=== PATIENT | male | born 2005 | race Caucasian/White ===

== ENCOUNTER 2025-05-14 18:59 | Observation (INO) ==
[2025-05-14] MEDS: MoRPHine SULFATE 4 MG/ML 1 ML CARP\\VIAL IV STA (19:24)
[2025-05-14] MEDS: KETOROLAC TROMETHAMINE 15 MG/ML VIAL IV ONE (19:25)
[2025-05-14] MEDS: SODIUM CHLORIDE 0.9% 1,000 ML IV ONE (19:25)
[2025-05-14] MEDS: ONDANSETRON INJ 2 MG/ML 2 ML VIAL IV STA (19:25)
[2025-05-14 19:29] LABS: Hematocrit (blood only) 42.7 % (42.0-52.0); Hemoglobin 14.9 g/dL (14.0-18.0); Immature Granulocytes # (auto) 0.05 K/uL (0.01-0.20); Immature Granulocytes % (auto) 0.3 %; Mean Corpuscular Hemoglobin 29.8 pg (25.0-34.0); Mean Corpuscular Volume 85.4 fL (80.0-100.0); Platelet Count 298 K/uL (130-400); RDW Standard Deviation 37.5 fL (36.4-46.3); Red Blood Count 5.00 M/uL (4.70-6.10); White Blood Count 14.42 K/ul (4.8-10.8)
--- NOTE | 2025-05-14 19:48 | Emergency Department Note ---
Impression & Plan Right kidney stone, Hydroureteronephrosis ED Provider Note CHIEF COMPLAINT: Kidney stone HISTORY OF PRESENTING ILLNESS: This 20-year-old male patient presents to the emergency department for evaluation of right sided flank pain that started a few days ago. The patient was seen in the ER on 05/10/2025 and 05/13/2025 and diagnosed with a 4 mm right ureteral stone. The patient has been taking his ibuprofen, Tylenol, Flomax, and oxycodone at home without control of his symptoms. The patient states that he has been in severe pain for the past 6 hours despite the medication and was unable to tolerate it at home. He denies any fevers. He denies any chest pain or shortness of breath. He denies any vomiting, but does have some nausea. He has not gotten an appointment with urology yet. CT scan on 05/10/2025 shows a 4 mm calculus of the distal right ureter without significant associated obstructive uropathy. Nonobstructing bilateral nephrolithiasis. The patient was given prescriptions for Flomax, Zofran, and oxycodone. Renal ultrasound showed the right ureteral stone, but no other acute abnormalities. Urinalysis with no evidence for infection and laboratory studies were reassuring. The patient felt better after IV pain control and he was discharged home to follow-up with urology and continue the ibuprofen, Tylenol, oxycodone, Flomax, and Zofran. REVIEW OF SYSTEMS: See HPI for pertinent positives and pertinent negatives. ALLERGIES: NKDA MEDICATIONS: See below PAST MEDICAL HISTORY: See below PHYSICAL EXAM: VITALS: Vitals are noted on the nurse's note and reviewed by myself. GENERAL: The patient appears to be in a significant amount of pain, but otherwise non toxic. SKIN: Capillary refill <2 sec. EYES: PERRLA. EOMI. Conjunctivae without injection, sclerae without icterus. NOSE: Patent without discharge. MOUTH: Mucous membranes moist. Uvula midline. Airway patent. NECK: Supple without nuchal rigidity. HEART: Regular rate and rhythm without murmurs gallops or rubs. LUNGS: Clear to auscultation bilaterally without wheezes, rales or rhonchi. No retractions or accessory muscle use. ABDOMEN: Positive bowel sounds x 4. Normal tympanic percussion. Soft, mildly tender to palpation in the right flank. No masses or hepatosplenomegaly. Grayson sign negative. No CVA tenderness. No guarding, rigidity, or rebound tenderness. No focal RLQ or LLQ tenderness. MUSCULOSKELETAL: No gross musculoskeletal defects. NEURO: Patient was alert and oriented. No focal neurological deficits. DIFFERENTIAL DIAGNOSIS: Differential diagnosis includes hepatitis, pancreatitis, cholecystitis, cholelithiasis, appendicitis, kidney stone, pyelonephritis, UTI, gastritis, gastroenteritis, mesenteric adenitis, obstruction, constipation, hernia, abdominal abscess, perforation, diverticulitis, IBD, ischemic colitis, abdominal aortic aneurysm, testicular torsion, prostatitis, or others. ED COURSE AND MEDICAL DECISION MAKING: MEDICATIONS GIVEN: 1 L normal saline solution bolus. Toradol 10 mg IV. Morphine 4 mg IV and Zofran 4 mg IV. Tylenol 1000 mg IV. Flomax 0.4 mg p.o. INTERPRETATION OF LABS: I interpreted the labs with full lab results as below in the lab section of this note. Laboratory results pertinent to the emergent complaint are discussed in the MDM section below. The patient was advised to follow up with their PCP and/or specialist(s) for further outpatient monitoring and management of any abnormal results. INTERPRETATION OF IMAGING: Imaging studies were interpreted by myself and read by radiology as per the imaging section of this note. The patient was advised to follow up with their PCP and/or specialist(s) for further outpatient management of any non-emergent abnormal findings. CT scan of the abdomen and pelvis with IV contrast shows a 4 mm stone in the distal right ureter near the right UVJ. Mild right hydroureteronephrosis. Hypoenhancement of the right kidney and right perinephric fluid. Additional inferior right renal stone. Small nonobstructing left renal stones. No hydronephrosis or ureteral stone on the left. Mild prominence of the bladder wall is likely secondary to underdistention. EXTERNAL RECORDS REVIEWED: I reviewed the patient's previous imaging as summarized above. CONSULTATIONS: On-call hospitalist MDM SUMMARY: I examined the patient. The patient was diagnosed with a right ureteral stone on 05/10/2025. He was seen in the ER again on 05/13/2025 for uncontrolled pain and had a renal ultrasound as above. The patient has been taking his ibuprofen, Tylenol, Flomax, oxycodone, and Zofran at home without relief of his pain. He states that he has been in severe pain for the past 6 hours and is no longer able to control his pain at home. An IV lock was placed and labs were drawn. The patient was medicated as above with improvement of his symptoms. He was given 1 L normal saline solution bolus. He had not taken his dose of Flomax today so he was given Flomax 0.4 mg p.o. White blood cell count elevated at 14.42. The patient has been afebrile and his urinalysis does not appear to be infected. Question whether the elevated white blood cell count is secondary to an infectious etiology versus a stress response from his degree of pain. Hemoglobin normal at 14.9. Platelet count normal at 298. Sodium low at 134 and potassium low at 3.4 with an elevated anion gap of 12. Total bilirubin 1.7, but his total bilirubin appears to be chronically elevated and may be secondary to Gilbert's. Glucose 110, but CMP otherwise without concerning abnormalities. Magnesium normal at 1.8. Lipase normal. Urinalysis with trace ketones and trace blood, but no evidence for UTI. CT scan of the abdomen and pelvis with IV contrast shows a 4 mm stone in the distal right ureter near the right UVJ. Mild right hydroureteronephrosis. Hypoenhancement of the right kidney and right perinephric fluid. Additional inferior right renal stone. Small nonobstructing left renal stones. No hydronephrosis or ureteral stone on the left. Mild prominence of the bladder wall is likely secondary to underdistention. The patient's pain was improved with the above medications, but not fully resolved. The patient was also concerned as this was his third visit to the ER for uncontrolled pain at home despite having appropriate pain medication. After discussion with the patient, the patient feels he would benefit from admission for further management and treatment of his symptoms. I spoke with the on-call hospitalist who agreed to admit the patient for further evaluation and treatment. Please refer to their dictation for further details. The patient's care was transferred in stable condition. DIAGNOSIS: Right ureteral stone with mild right hydroureteronephrosis Past Med/Surg History Problem List (Updated 05/15/25 @ 00:17 by Mikaela Martins PA-C) Hypokalemia Hyponatremia Elevated bilirubin Right kidney stone (Acute) Hydroureteronephrosis (Acute) Acute right flank pain (Acute) Kidney stone (Acute) Social History Smoking Status: Never smoker Preferred Language: [place] Feels Safe at Home: Yes Allergies Allergies Allergy/AdvReac Type Severity Reaction Status Date / Time No Known Allergies Allergy Unverified 05/14/25 22:15 Home Meds Home Medications Medication Instructions Recorded Confirmed adalimumab-atto 40 mg/0.4 mL 40 mg subcut UD 02/17/25 05/14/25 subcutaneous auto-injector (Amjevita(CF) Autoinjector) acetaminophen 500 mg tablet 500 mg PO Q6 PRN Pain 05/13/25 05/14/25 ibuprofen 200 mg tablet (Advil) 200 mg PO Q6 PRN Pain 05/14/25 05/14/25 oxycodone 5 mg tablet 5 mg PO Q6H PRN Pain 05/14/25 05/14/25 tamsulosin 0.4 mg capsule 0.4 mg PO QAM 05/14/25 05/14/25 Previous Rx's Medication Instructions Recorded ondansetron 4 mg disintegrating 4 mg PO Q8H PRN nausea and 05/10/25 tablet vomiting 5 days #15 tabs Results & Data (ED) Vital Signs Vital Signs - 24 hr 05/14/25 19:02 05/14/25 19:16 05/14/25 19:19 Temperature 36.7 C Temperature Source Temporal Artery Scan Pulse Rate 95 H 78 Pulse Rate [Apical] 74 Pulse Rhythm Regular Pulse Strength Normal Respiratory Rate 20 22 Respiratory Effort / Characteristics Non-Labored Spontaneous Respiratory Depth Normal Respiratory Pattern Regular Blood Pressure 131/92 Blood Pressure [Right Arm] 147/88 H Blood Pressure Mean 105 Blood Pressure Mean [Right Arm] 107 Blood Pressure Position Sitting Pulse Oximetry 99 100 Oxygen Delivery Method Room Air Room Air Sepsis Recent Fever Within 48 Hours No Sepsis New/Unexplained Change in Mental Status N/A Sepsis Action Taken by Nursing No Action Required 05/14/25 20:00 05/14/25 21:00 05/14/25 23:19 Temperature Temperature Source Pulse Rate 61 Pulse Rate [Apical] 69 73 Pulse Rhythm Pulse Strength Respiratory Rate 20 18 Respiratory Effort / Characteristics Respiratory Depth Respiratory Pattern Blood Pressure Blood Pressure [Right Arm] 125/85 132/86 Blood Pressure Mean Blood Pressure Mean [Right Arm] 98 101 Blood Pressure Position Pulse Oximetry 98 98 Oxygen Delivery Method Room Air Room Air Sepsis Recent Fever Within 48 Hours Sepsis New/Unexplained Change in Mental Status Sepsis Action Taken by Nursing Laboratory Data 05/14/25 19:15 05/14/25 19:15 Lab Results 05/14/25 05/14/25 Range/Units 19:15 20:30 WBC 14.42 H (4.8-10.8) K/ul RBC 5.00 (4.70-6.10) M/uL Hgb 14.9 (14.0-18.0) g/dL Hct 42.7 (42.0-52.0) % MCV 85.4 (80.0-100.0) fL MCH 29.8 (25.0-34.0) pg MCHC 34.9 (32.0-36.0) g/dL RDW Std Deviation 37.5 (36.4-46.3) fL RDW Coeff of Julienne 12.1 (11.5-14.5) % Plt Count 298 (130-400) K/uL MPV 10.6 (9.4-12.4) fL Immature Gran % (Auto) 0.3 % Neut % (Auto) 75.0 % Lymph % (Auto) 16.6 % [place] % (Auto) 6.6 % Eos % (Auto) 0.8 % Baso % (Auto) 0.7 % Neut # (Auto) 10.82 H (1.40-6.50) K/uL Lymph # (Auto) 2.39 (1.20-3.40) K/uL [place] # (Auto) 0.95 H (0.11-0.59) K/uL Eos # (Auto) 0.11 (0.00-0.50) K/uL Baso # (Auto) 0.10 (0.00-0.20) K/uL Immature Gran # (Auto) 0.05 (0.01-0.20) K/uL Sodium 134 L (136-145) mmol/L Potassium 3.4 L (3.5-5.1) mmol/L Chloride 100 (98-107) mmol/L Carbon Dioxide 22 (21-32) mmol/L Anion Gap 12 H (3-11) BUN 12 (6-23) mg/dl Creatinine 1.20 (0.6-1.4) mg/dl Est Cr Clr Drug Dosing 91.0 ml/min eGFR 87.69 BUN/Creatinine Ratio 10.0 (10-20) Glucose 110 H (70-99(Fasting)) mg/dl Calcium 10.0 (8.6-10.3) mg/dl Magnesium 1.8 (1.7-2.4) mg/dl Total Bilirubin 1.7 H D (0.2-1.0) mg/dl AST 16 (13-39) U/L ALT 14 (7-52) U/L Alkaline Phosphatase 64 (34-104) U/L Total Protein 7.9 (6.0-8.3) gm/dl Albumin 4.5 (3.4-5.0) gm/dl Globulin 3.4 (2.5-4.0) gm/dl Albumin/Globulin Ratio 1.3 (0.9-2) Lipase 17 (11-82) U/L Urine Color Yellow Urine Appearance Clear (Clear) Urine pH 7.5 (4.5-7.5) Ur Specific [place] 1.003 (1.000-1.030) Urine Protein Negative (Negative) Urine Glucose (UA) Negative (Negative) Urine Ketones Trace H (Negative) Urine Blood Trace H (Negative) Urine Nitrite Negative (Negative) Urine Bilirubin Negative (Negative) Urine Urobilinogen Negative (Negative) Ur Leukocyte Esterase Negative (Negative) Urine WBC (Auto) 0-5 (0-5) /hpf Urine RBC (Auto) 0-2 (0-2) /hpf U Hyaline Cast (Auto) 0-2 (0-2) /lpf U Epithel Cells (Auto) 0-2 (0-2) /hpf Urine Bacteria (Auto) None Seen (None Seen) Urine Comment Administered Medications Parenteral Electrolytes (Plasma-Lyte A Ph 7.4) 1,000 mls @ 125 mls/hr IV .Q8H LAURA Stop: 05/15/25 14:59 Last Admin: 05/14/25 23:31 Dose: 125 mls/hr Documented By: tcm Discontinued Medications Sodium Chloride (Nss) 1,000 mls @ 999 mls/hr IV .Q1H1M ONE Stop: 05/14/25 20:16 Last Infusion: 05/14/25 20:34 Dose: Infused Documented By: amg Admin: 05/14/25 19:25 Dose: 999 mls/hr Documented By: amvaldez Acetaminophen (Ofirmev) 1,000 mg in 100 mls @ 400 mls/hr IV NOW STA Stop: 05/14/25 22:13 Last Infusion: 05/14/25 22:57 Dose: Infused Documented By: yenifer Admin: 05/14/25 22:09 Dose: 400 mls/hr Documented By: yenifer Ceftriaxone Sodium (Rocephin) 2,000 mg in 50 mls @ 100 mls/hr IV ONE STA Stop: 05/14/25 23:23 Last Admin: 05/14/25 23:14 Dose: 100 mls/hr Documented By: paloma Ioversol (Optiray 320 125ml) 90 ml IV ONCE ONE Stop: 05/14/25 20:35 Last Admin: 05/14/25 20:35 Dose: 90 ml Documented By: MANJEET Ketorolac Tromethamine (Ketorolac Tromethamine 15 Mg/Ml Vial) 10 mg IV NOW ONE Stop: 05/14/25 19:17 Last Admin: 05/14/25 19:25 Dose: 10 mg Documented By: yenifer Morphine Sulfate (Morphine Sulfate 4 Mg/Ml 1 Ml Carp\Vial) 4 mg IV NOW STA Stop: 05/14/25 19:17 Last Admin: 05/14/25 19:24 Dose: 4 mg Documented By: yenifer Ondansetron HCl (Ondansetron Inj 2 Mg/Ml 2 Ml Vial) 4 mg IV NOW STA Stop: 05/14/25 19:17 Last Admin: 05/14/25 19:25 Dose: 4 mg Documented By: yenifer Potassium Chloride (Potassium Chloride 10 Meq Tabcr) 10 meq PO NOW STA Stop: 05/14/25 22:52 Last Admin: 05/14/25 23:13 Dose: 10 meq Documented By: paloma Tamsulosin HCl (Tamsulosin Hcl 0.4 Mg Cap) 0.4 mg PO NOW ONE Stop: 05/14/25 22:00 Last Admin: 05/14/25 22:09 Dose: 0.4 mg Documented By: yenifer Imaging Data Radiologist's Impression: Abdomen/Pelvis CT 05/14/25 19:16 Exam(s): CT ABDOMEN + PELVIS With Contrast IV Amt: 90 ml optiray 320 EXAM: CT Abdomen and Pelvis With Intravenous Contrast CLINICAL HISTORY: Reason for exam: Worsening pain with known stone. TECHNIQUE: Axial computed tomography images of the abdomen and pelvis with intravenous contrast. CTDI is 11.36 mGy and DLP is 531.46 mGy-cm. Automated exposure control was utilized for the study. A dose lowering technique was utilized adhering to the principles of ALARA. CONTRAST: Patient received 90 ml optiray 320 of IV contrast COMPARISON: CT abdomen/pelvis on 05/10/2025 FINDINGS: Lung bases: Unremarkable. No mass. No consolidation. ABDOMEN: Liver: Unremarkable. No mass. Gallbladder and bile ducts: Unremarkable. No calcified stones. No ductal dilation. Pancreas: Unremarkable. No mass. No ductal dilation. Spleen: Unremarkable. No splenomegaly. Adrenals: Unremarkable. No mass. Kidneys and ureters: 4 mm stone in the distal right ureter near the right UVJ. Mild right hydroureteronephrosis. Hypoenhancement of the right kidney and right perinephric fluid. Additional inferior right renal stone. Small nonobstructing left renal stones. No hydronephrosis or ureteral stone on the left. Stomach and bowel: Unremarkable. No mucosal thickening. No bowel obstruction or inflammation. PELVIS: Appendix: No findings to suggest acute appendicitis. Bladder: Mild prominence of the bladder wall is likely secondary to underdistention. Please correlate with urinalysis if concerned for cystitis. Reproductive: Unremarkable as visualized. ABDOMEN and PELVIS: Intraperitoneal space: Small amount of fluid in the pelvis. No free air. Bones/joints: No acute fracture. No dislocation. Soft tissues: Unremarkable. Vasculature: Phlebolith in the left pelvis. No abdominal aortic aneurysm. Lymph nodes: Unremarkable. No enlarged lymph nodes. IMPRESSION: 1. 4 mm stone in the distal right ureter near the right UVJ. Mild right hydroureteronephrosis. Hypoenhancement of the right kidney and right perinephric fluid. Additional inferior right renal stone. 2. Small nonobstructing left renal stones. No hydronephrosis or ureteral stone on the left. 3. Mild prominence of the bladder wall is likely secondary to underdistention. Please correlate with urinalysis if concerned for cystitis. Electronically signed by: Alin Davis M.D. 05/14/25 21:45 PM Discharge Plan Visit Data Chief Complaint: Kidney Stone Stated Complaint: KIDNEY STONE ED Provider: Marisela Maldonado ED Midlevel Provider: Mikaela Martins Discharge Problem: Right kidney stone, Hydroureteronephrosis Patient Disposition: Admitted As Inpatient Condition: Fair Forms Stand Alone Forms: [facility] [place] [employer] Prescriptions Prescriptions: No Action acetaminophen [Tylenol Ex Str Rapid Release] 500 mg Tablet 500 mg PO Q6 PRN (Reason: Pain) Patient Comments: ibuprofen [Advil] 200 mg Tablet 200 mg PO Q6 PRN (Reason: Pain) oxycodone 5 mg Tablet 5 mg PO Q6H PRN (Reason: Pain) tamsulosin 0.4 mg capsule 0.4 mg PO QAM Parrish(CF) Autoinjector 40 mg/0.4 mL auto-injector 40 mg SUBCUT UD Patient Comments: 1 inj every 3 weeks Rx Instructions: every 3 weeks on wednesdays ondansetron 4 mg tablet,disintegrating 4 mg PO Q8H PRN (Reason: nausea and vomiting) 5 Days Qty: 15 0RF Referrals Referrals: [facility] [Primary Care Provider] -
[2025-05-14 19:53] LABS: Alanine Aminotransferase 14.0 U/L (7-52); Albumin Globulin Ratio 1.3 (0.9-2); Albumin Level 4.5 gm/dl (3.4-5.0); Alkaline Phosphatase 64.0 U/L (34-104); Anion Gap 12.0 (3-11); Bilirubin,Total 1.7 mg/dl (0.2-1.0); Blood Urea Nitrogen 12.0 mg/dl (6-23); Calcium 10.0 mg/dl (8.6-10.3); Carbon Dioxide 22.0 mmol/L (21-32); Chloride 100.0 mmol/L (98-107); Creatinine Clr Calc Pharmacy 91.0 ml/min; Globulin 3.4 gm/dl (2.5-4.0); Glucose 110.0 mg/dl (70-99(Fasting)); Lipase 17.0 U/L (11-82); Potassium 3.4 mmol/L (3.5-5.1); Sodium 134.0 mmol/L (136-145); Total Protein 7.9 gm/dl (6.0-8.3)
[2025-05-14] MEDS: OPTIRAY 320 125ml IV ONE (20:35)
[2025-05-14 20:55] LABS: Appearance Urine Clear (Clear); Bacteria Urine Automated None Seen (None Seen); Cast Urine Automated 0-2 /lpf (0-2); Epithelial Cell Urine Auto 0-2 /hpf (0-2); Glucose Urine UA Negative (Negative); RBC Urine Automated 0-2 /hpf (0-2); WBC Urine Automated 0-5 /hpf (0-5)
--- NOTE | 2025-05-14 21:45 | CT Scan Report ---
Exam(s): CT ABDOMEN + PELVIS With Contrast IV Amt: 90 ml optiray 320 EXAM: CT Abdomen and Pelvis With Intravenous Contrast CLINICAL HISTORY: Reason for exam: Worsening pain with known stone. TECHNIQUE: Axial computed tomography images of the abdomen and pelvis with intravenous contrast. CTDI is 11.36 mGy and DLP is 531.46 mGy-cm. Automated exposure control was utilized for the study. A dose lowering technique was utilized adhering to the principles of ALARA. CONTRAST: Patient received 90 ml optiray 320 of IV contrast COMPARISON: CT abdomen/pelvis on 05/10/2025 FINDINGS: Lung bases: Unremarkable. No mass. No consolidation. ABDOMEN: Liver: Unremarkable. No mass. Gallbladder and bile ducts: Unremarkable. No calcified stones. No ductal dilation. Pancreas: Unremarkable. No mass. No ductal dilation. Spleen: Unremarkable. No splenomegaly. Adrenals: Unremarkable. No mass. Kidneys and ureters: 4 mm stone in the distal right ureter near the right UVJ. Mild right hydroureteronephrosis. Hypoenhancement of the right kidney and right perinephric fluid. Additional inferior right renal stone. Small nonobstructing left renal stones. No hydronephrosis or ureteral stone on the left. Stomach and bowel: Unremarkable. No mucosal thickening. No bowel obstruction or inflammation. PELVIS: Appendix: No findings to suggest acute appendicitis. Bladder: Mild prominence of the bladder wall is likely secondary to underdistention. Please correlate with urinalysis if concerned for cystitis. Reproductive: Unremarkable as visualized. ABDOMEN and PELVIS: Intraperitoneal space: Small amount of fluid in the pelvis. No free air. Bones/joints: No acute fracture. No dislocation. Soft tissues: Unremarkable. Vasculature: Phlebolith in the left pelvis. No abdominal aortic aneurysm. Lymph nodes: Unremarkable. No enlarged lymph nodes. IMPRESSION: 1. 4 mm stone in the distal right ureter near the right UVJ. Mild right hydroureteronephrosis. Hypoenhancement of the right kidney and right perinephric fluid. Additional inferior right renal stone. 2. Small nonobstructing left renal stones. No hydronephrosis or ureteral stone on the left. 3. Mild prominence of the bladder wall is likely secondary to underdistention. Please correlate with urinalysis if concerned for cystitis. Electronically signed by: Alin Davis M.D. 05/14/25 21:45 PM
[2025-05-14] MEDS: TAMSULOSIN HCL 0.4 MG CAP PO ONE (22:09)
[2025-05-14] MEDS: ACETAMINOPHEN 1,000 MG/100 ML VIAL IV STA (22:09)
--- NOTE | 2025-05-14 22:25 | History & Physical Report ---
Date of Service May 14, 2025 Assessment & Plan (1) Hydroureteronephrosis: (2) Right kidney stone: (3) Elevated bilirubin: (4) Hyponatremia: (5) Hypokalemia: Plan 20-year-old male with known kidney stone presenting for worsening right sided flank pain and right lower quadrant pain not alleviated with home medications. Evaluation is significant for leukocytosis of 14.42, sodium 134, potassium 3.4. Otherwise findings are as before with a CTAP revealing 4 mm stone in the distal R ureter near the R UVJ with mild R hydroureteronephrosis. Intractable pain despite outpatient management. Admission for intractable pain secondary to renal calculi, with hydroureteronephrosis. #Hydroureteronephrosis/R renal calculi Diagnosed with renal stone 05/10/2025, R side. Discharged from ED with tamsulosin, Zofran, and oxycodone. Return back to ED/02/2025 for recurrence of pain and discharged home. Now on third visit today for worsening in unbearable pain. Has been unable to f/u with outpatient urology. No LUTS. - CBC leukocytosis 14.42; renal function stable on CMP - CBC, BMP - UA without infection - CTAP 4 mm stone right distal ureter near R UVJ with mild R hydroureteronephrosis, hypoenhancement R kidney and right perinephric fluid, inferior R renal stone, small nonobstructing L renal stones without hydronephrosis - Urine strainer - NPO midnight - IVF plasma lyte @ 125 mL/hr - Zofran prn N/V - Acetaminophen prn fever/mild pain, Ketorolac prn moderate pain, morphine prn severe pain - Continue tamsulosin - Ceftriaxone IV now -- hydroureteronephrosis in setting of leukocytosis - Urology consulted - Appreciate input + recs #Elevated bilirubin R flank pain, starting day of diagnosed kidney stone. No additional abdominal pain. Bilirubin appears to be elevated consistently, have worsened oncer the past 5 days. Pt is on Amjevita injections, ?? impacting this number. Has been taking acetaminophen + oxycodone at home. - LFTs WNL with exception bilirubin 1.7 - CTAP without abnormalities noted w/ GB, pancreas, or liver - Continue to trend as appropriate #Hyponatremia/Hypokalemia Likely secondary to decreased intake secondary to pain. Pending magnesium. Currently asymptomatic - Na 134, glucose 110 - K 3.4, Mg pending - IVF as above - KCl 10 mEq po now - BMP am Dispo: Obs, med/sx VTE Prophylaxis: SCDs This document was dictated utilizing [employer]. Please excuse any grammatical errors that may be secondary to use of this software. Admission and Anticipated Discharge Date Admission Date: 05/14/2025 History of Present Illness Chief Complaint: Flank pain Primary Care Provider: [facility] 20-year-old male with known kidney stone presenting for worsening right sided flank pain and right lower quadrant pain not alleviated with home medications. Patient was diagnosed with renal stone on 05/10 at [facility]. Patient states that he has been dealing with this pain since 5 days PERINATAL DIRECTOR. It had been bearable up until that point, with occasional episodes of pain that lasted no more than an hour and then dissipated. However the day of arrival, he had a constant 6 hours of pain that was stabbing and pulsating in nature. He states he took his pain medications that he was prescribed (oxycodone) and this did not help alleviate the pain. He was nauseous, without vomiting. States that the pain is located at his RLQ and right flank, little radiation into the groin. Patient also states that he has not had a bowel movement since 5 days PERINATAL DIRECTOR, but has not had much intake over the past few days. He did have 1 episode of (urethral stinging) with urination when in the ED. Denies fevers, did have some chills with most severe episodes of pain. Denies chest pain, SOB, palpitations, numbness/tingling, fever, weakness, syncope, or falls. His most recent injection for RA was stable for . ED evaluation reveals CBC with leukocytosis 14.42, stable H&H and platelets; CMP sodium 134, potassium 3.4, AG 12, glucose 110, bilirubin 1.7; UA negative for infection; CTAP 4 mm stone distal R ureter near right UVJ, mild R hydroureteronephrosis, hypoenhancement R kidney and right perinephric fluid, inferior R renal stone, small nonobstructing L renal stones without hydronephrosis, mild prominence bladder wall likely secondary to underdistention.; Provided with tamsulosin 0.4 mg po, 1L NSS, Zofran 4 mg IV, morphine 4 mg IV, ketorolac 10 mg IV, and acetaminophen 1 g IV in ED. Please see Dr. Quintana attestation for adjustments/additions to treatment plan. Allergies Allergy/AdvReac Type Severity Reaction Status Date / Time No Known Allergies Allergy Verified 05/15/25 15:08 Home Medications Medication Instructions Recorded Confirmed Type adalimumab-atto 40 mg/0.4 mL 40 mg subcut UD 02/17/25 05/14/25 History subcutaneous auto-injector (Amjevita(CF) Autoinjector) ondansetron 4 mg disintegrating 4 mg PO Q8H PRN nausea and 05/10/25 05/14/25 Rx tablet vomiting 5 days #15 tabs acetaminophen 500 mg tablet 500 mg PO Q6 PRN Pain 05/13/25 05/14/25 History ibuprofen 200 mg tablet (Advil) 200 mg PO Q6 PRN Pain 05/14/25 05/14/25 History oxycodone 5 mg tablet 5 mg PO Q6H PRN Pain 05/14/25 05/14/25 History tamsulosin 0.4 mg capsule 0.4 mg PO QAM 05/14/25 05/14/25 History oxybutynin chloride 5 mg 5 mg PO DAILY #5 tabs 05/15/25 Rx tablet,extended release 24 hr Past Med/Surg History Problem List (Updated 05/15/25 @ 00:17 by Mikaela Martins PA-C) Hypokalemia Hyponatremia Elevated bilirubin Right kidney stone (Acute) Hydroureteronephrosis (Acute) Acute right flank pain (Acute) Kidney stone (Acute) Social History Smoking Status: Never smoker Hx Alcohol Use: Yes Hx Substance Use: No Preferred Language: [place] Citizen Communication Ability: Effective 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 Beliefs That Will Affect Care: None Current Living Situation: Family Current Living Situation Comment: stays with uncle in [place] during school semesters Feels Safe at Home: Yes Assistive Devices: None Review of Systems Review of Systems: All systems reviewed & are unremarkable except as noted in Subjective Physical Exam Physical Exam: General: No acute distress Skin: Warm and dry Head: Normocephalic, atraumatic Eyes: PERRL, conjunctivae clear, sclera non-icteric ENT: External ear and ear canal without swelling; nose atraumatic; good dentition, tongue normal appearance, pharynx normal Neck: Supple, no LAD Cardio: RRR, no M/G/R, S1 and S2 normal Resp: No respiratory distress, Lungs CTA in all lobes bilaterally, no wheezes, rales, or rhonchi Abdomen: Soft, symmetric, nontender; No masses or hepatosplenomegaly; Bowel sounds normoactive MSK: No deformities; pulses palpable and equal; no edema. Neuro: Awake, alert; Sensation intact bilaterally; CN grossly intact Psych: Appropriate mood and affect; good judgement and insight. Father present in room at time of visit. Results & Data Results & Data Vital Signs (Past 12 Hours) Vital Signs Temp Pulse Pulse Resp BP BP Pulse Ox 05/14/25 21:00 73 18 132/86 98 05/14/25 20:00 69 20 125/85 98 05/14/25 19:19 78 05/14/25 19:16 74 22 147/88 H 100 05/14/25 19:02 36.7 C 95 H 20 131/92 99 O2 Del Method 05/14/25 21:00 Room Air 05/14/25 20:00 Room Air 05/14/25 19:19 05/14/25 19:16 Room Air 05/14/25 19:02 Room Air Laboratory Results 05/14/25 05/14/25 20:30 19:15 WBC 14.42 H RBC 5.00 Hgb 14.9 Hct 42.7 MCV 85.4 MCH 29.8 MCHC 34.9 RDW Std Deviation 37.5 RDW Coeff of Julienne 12.1 Plt Count 298 MPV 10.6 Immature Gran % (Auto) 0.3 Neut % (Auto) 75.0 Lymph % (Auto) 16.6 [place] % (Auto) 6.6 Eos % (Auto) 0.8 Baso % (Auto) 0.7 Neut # (Auto) 10.82 H Lymph # (Auto) 2.39 [place] # (Auto) 0.95 H Eos # (Auto) 0.11 Baso # (Auto) 0.10 Immature Gran # (Auto) 0.05 Sodium 134 L Potassium 3.4 L Chloride 100 Carbon Dioxide 22 Anion Gap 12 H BUN 12 Creatinine 1.20 Est Cr Clr Drug Dosing 91.0 eGFR 87.69 BUN/Creatinine Ratio 10.0 Glucose 110 H Calcium 10.0 Total Bilirubin 1.7 H D AST 16 ALT 14 Alkaline Phosphatase 64 Total Protein 7.9 Albumin 4.5 Globulin 3.4 Albumin/Globulin Ratio 1.3 Lipase 17 Urine Color Yellow Urine Appearance Clear Urine pH 7.5 Ur Specific [place] 1.003 Urine Protein Negative Urine Glucose (UA) Negative Urine Ketones Trace H Urine Blood Trace H Urine Nitrite Negative Urine Bilirubin Negative Urine Urobilinogen Negative Ur Leukocyte Esterase Negative Urine WBC (Auto) 0-5 Urine RBC (Auto) 0-2 U Hyaline Cast (Auto) 0-2 U Epithel Cells (Auto) 0-2 Urine Bacteria (Auto) None Seen Urine Comment Diagnostic Findings Abdomen/Pelvis CT 05/14/25 19:16 Exam(s): CT ABDOMEN + PELVIS With Contrast IV Amt: 90 ml optiray 320 EXAM: CT Abdomen and Pelvis With Intravenous Contrast CLINICAL HISTORY: Reason for exam: Worsening pain with known stone. TECHNIQUE: Axial computed tomography images of the abdomen and pelvis with intravenous contrast. CTDI is 11.36 mGy and DLP is 531.46 mGy-cm. Automated exposure control was utilized for the study. A dose lowering technique was utilized adhering to the principles of ALARA. CONTRAST: Patient received 90 ml optiray 320 of IV contrast COMPARISON: CT abdomen/pelvis on 05/10/2025 FINDINGS: Lung bases: Unremarkable. No mass. No consolidation. ABDOMEN: Liver: Unremarkable. No mass. Gallbladder and bile ducts: Unremarkable. No calcified stones. No ductal dilation. Pancreas: Unremarkable. No mass. No ductal dilation. Spleen: Unremarkable. No splenomegaly. Adrenals: Unremarkable. No mass. Kidneys and ureters: 4 mm stone in the distal right ureter near the right UVJ. Mild right hydroureteronephrosis. Hypoenhancement of the right kidney and right perinephric fluid. Additional inferior right renal stone. Small nonobstructing left renal stones. No hydronephrosis or ureteral stone on the left. Stomach and bowel: Unremarkable. No mucosal thickening. No bowel obstruction or inflammation. PELVIS: Appendix: No findings to suggest acute appendicitis. Bladder: Mild prominence of the bladder wall is likely secondary to underdistention. Please correlate with urinalysis if concerned for cystitis. Reproductive: Unremarkable as visualized. ABDOMEN and PELVIS: Intraperitoneal space: Small amount of fluid in the pelvis. No free air. Bones/joints: No acute fracture. No dislocation. Soft tissues: Unremarkable. Vasculature: Phlebolith in the left pelvis. No abdominal aortic aneurysm. Lymph nodes: Unremarkable. No enlarged lymph nodes. IMPRESSION: 1. 4 mm stone in the distal right ureter near the right UVJ. Mild right hydroureteronephrosis. Hypoenhancement of the right kidney and right perinephric fluid. Additional inferior right renal stone. 2. Small nonobstructing left renal stones. No hydronephrosis or ureteral stone on the left. 3. Mild prominence of the bladder wall is likely secondary to underdistention. Please correlate with urinalysis if concerned for cystitis. Electronically signed by: Alni Davis M.D. 05/14/25 21:45 PM Medications Administered Tamsulosin 0.4 mg po 1L NSS Zofran 4 mg IV Morphine 4 mg IV Ketorolac 10 mg IV Acetaminophen 1 g IV Code Status & VTE Plan Code Status Full Supervising Physician Co-Signing Physician Notes Attending addendum: I have physically seen this patient, have supervised the activities, and agree with the H&P unless as otherwise noted. Assessment and Plan: The patient is a 20-year-old male with past medical history significant for a right UPJ 4 mm kidney stone without obstruction initially noted on CT scan of abdomen pelvis in the ED on 05/10. He presents to the emergency department this evening with complaint of worsening right sided flank pain and right lower quadrant pain not alleviated by home medications. CT scan in the emergency department this evening reveals presence of same right UVJ stone, but now is associated with mild hydro ureteronephrosis. WBC is increased from 10.29-14.42. Patient is considered failure of outpatient treatment, and is being admitted for further evaluation and treatment. 4 mm right UVJ obstructing kidney stone/mild right hydroureteronephrosis- N.p.o. after midnight Follow urine culture and sensitivity From the ED patient received the following: Toradol 10 mg IV, morphine 4 mg IV, Zofran 4 mg IV, normal saline 1 L IV fluid bolus, Tylenol 1 g IV, and tamsulosin 0.4 mg p.o. Plasma-Lyte at 125 mL/h Zofran 4 mg IV every 6 hours as needed Acetaminophen 1 g IV every 8 hours as needed for mild pain or fever Toradol 10 mg IV every 6 hours as needed for moderate pain Morphine sulfate 4 mg IV every 3 hours as needed for severe pain. Tamsulosin 0.4 mg p.o. daily Ceftriaxone 2 g IV daily Consult urology Hypokalemia- Potassium 3.4 on admission Magnesium ordered and pending IV fluids as above Give additional potassium chloride 10 mEq p.o. now Recheck laboratories in a.m. Gilbert's syndrome- Isolated elevated bilirubin No additional testing or treatment PG Care Time/CCT Total # of Minutes Spent Total Time Spent with Patient: Total time spent is greater than 50% in coordination of care (as documented) at patient's floor/unit and/or counseling patient: Coding Level of Care Code 30501 INT INP/OBS CARE MIN Diagnoses Hydroureteronephrosis N13.30 Right kidney stone N20.0 Elevated bilirubin R17 Hyponatremia E87.1 Hypokalemia E87.6
[2025-05-14 22:50] LABS: Magnesium 1.8 mg/dl (1.7-2.4)
[2025-05-14] MEDS ORDERED: KETOROLAC TROMETHAMINE 15 MG/ML VIAL IV PRN (22:51)
[2025-05-14] MEDS ORDERED: MoRPHine SULFATE 2 MG/ML CARP IV PRN ×2 (22:51)
[2025-05-14] MEDS ORDERED: ACETAMINOPHEN 500 MG TAB PO PRN (22:51)
[2025-05-14] MEDS ORDERED: ACETAMINOPHEN 1,000 MG/100 ML VIAL IV PRN (22:53)
[2025-05-14] MEDS: POTASSIUM CHLORIDE 10 MEQ TABCR PO STA (23:13)
[2025-05-14] MEDS: cefTRIAXone SODIUM 2,000 MG/50 ML BAG IV STA (23:14)
[2025-05-14] MEDS: PLASMA-LYTE A 1,000 ML IV SCH (23:31)
[2025-05-15] MEDS ORDERED: ONDANSETRON INJ 2 MG/ML 2 ML VIAL IV PRN ×2 (01:34→15:40)
[2025-05-15] MEDS ORDERED: MELATONIN 3 MG TAB PO PRN (01:34)
[2025-05-15 07:28] LABS: Hematocrit (blood only) 37.5 % (42.0-52.0); Hemoglobin 13.0 g/dL (14.0-18.0); Mean Corpuscular Hemoglobin 30.0 pg (25.0-34.0); Mean Corpuscular Volume 86.4 fL (80.0-100.0); Platelet Count 218 K/uL (130-400); RDW Standard Deviation 38.3 fL (36.4-46.3); Red Blood Count 4.34 M/uL (4.70-6.10); White Blood Count 7.44 K/ul (4.8-10.8)
[2025-05-15 08:25] LABS: Anion Gap 8.0 (3-11); Blood Urea Nitrogen 10.0 mg/dl (6-23); Calcium 8.8 mg/dl (8.6-10.3); Carbon Dioxide 26.0 mmol/L (21-32); Chloride 105.0 mmol/L (98-107); Creatinine Clr Calc Pharmacy 119.4 ml/min; Glucose 83.0 mg/dl (70-99(Fasting)); Potassium 3.8 mmol/L (3.5-5.1); Sodium 139.0 mmol/L (136-145)
[2025-05-15] MEDS: TAMSULOSIN HCL 0.4 MG CAP PO SCH (09:00)
--- NOTE | 2025-05-15 09:33 | Hospitalist Progress Note ---
Date of Service May 15, 2025 Assessment & Plan (1) Hydroureteronephrosis: (2) Right kidney stone: (3) Elevated bilirubin: (4) Hyponatremia: (5) Hypokalemia: Plan 20-year-old male with PMHx RA and known kidney stone presenting for worsening right sided flank pain and right lower quadrant pain, after failing outpatient management. CTAP 05/10 revealed a 4mm stone at diltal R ureter w/ out significant obstruction. He was then d/c home w/ tamsulosin, zofran, and oxycodone. Pt r eturned to ED 05/13 for reoccurrence of pain where a Renal US revealed WNL kidney size and a non-obstructing Rt renal calculus. Pt represented on 05/14 w/ reoccurrence of severe pain. #Hydroureteronephrosis/R renal calculi - 05/14 CTAP 4mm stone in R UVJ w/ mildy hydroureteronephrosis w/ perinephric fluid, Sm L non-obstructing renal stones; 05/14 U/A noninfectious -Urology Consulted: Stent placement 05/15 -NPO -Urine strainer -IVF plasma lyte @ 125 mL/hr -Zofran prn N/V -Acetaminophen prn fever/mild pain, Ketorolac prn moderate pain, morphine prn severe pain -Continue tamsulosin -Ceftriaxone IV now, hydroureteronephrosis in setting of leukocytosis #Elevated bilirubin - New Onset; Pt denies knowledge of this in past; LFTs otherwise WNL 05/14; 05/14CTAP without Liver/GB/Pancrease abnormalities -Pt on Amjevita - may be contributing to elevated Bili -Trend LFTs #Rheumatoid Arthitis - Follows-up in [place] -Continue Amjevita - note may be contributing to elevated bili as above -Maintain f/u appointment on 05/22 -Provide Lab result summary on d/c so pt may bring LFT results to appointment #Hyponatremia/Hypokalemia - RESOLVED; Likely secondary to decreased intake secondary to pain -Trend BMP VTE Prophylaxis: SCDs Dispo: Obs, med/sx Admission and Anticipated Discharge Date Admission Date: May 14, 2025 Subjective Pt was laying in bed today in NAD, aunt at bedside. Pt notes that his pain is currently much more controlled than when he arrived last night. He notes that he's had some ongoing congestion, but attributes this to the change in season. Pt otherwise denies cough, sore throat, abd pain/discomfort, change in appetite, N/V/D, and weakness. Review of Systems Review of Systems: All systems reviewed & are unremarkable except as noted in Subjective Physical Exam Physical Exam: General: Pt is a 20 y/o WD/WN M in NAD in bed. VS: reviewed, unremarkable Skin: Warm and dry; no lesions or ulcerations Respiratory: CTA bilat, no adventitious sounds noted. Chest expansion is full and symmetrical Cardio: RRR no murmurs Abdomen: Round, normoactive BS x4, nontender to palpation MSK: FROM of extremities, no deformities Extremities: no edema Neuro: A&Ox4, cooperative Results & Data Results & Data Vital Signs (Past 12 Hours) Vital Signs Temp Pulse Pulse Resp BP Pulse Ox O2 Del Method 05/15/25 08:07 97.9 F 76 20 120/73 98 Room Air 05/15/25 02:04 98.6 F 76 16 141/56 H 98 Room Air 05/15/25 01:34 61 Room Air 05/14/25 23:19 61 Laboratory Results Reviewed: CBC, BMP PG Care Time/CCT Total # of Minutes Spent Total Time Spent with Patient: Total time spent is greater than 50% in coordination of care (as documented) at patient's floor/unit and/or counseling patient: Coding Level of Care Code 93941 SUB INP/OBS CARE 2/35MIN Diagnoses Hydroureteronephrosis N13.30 Right kidney stone N20.0 Elevated bilirubin R17 Hyponatremia E87.1 Hypokalemia E87.6
--- NOTE | 2025-05-15 14:29 | Urology Consultation ---
Date of Consultation May 15, 2025 Assessment & Plan (1) Right kidney stone: Plan 20 yo M with a distal right ureteral calculus who has presented to the ED 3 times recently due to pain. CT scan showed small distal stone and even smaller nonobstructing right stone. UA was negative. Afebrile with stable vitals. No concern for infection. -Given multiple bouncebacks to hospital and uncontrollable pain, recommended proceeding with cystoscopy, right retrograde pyelogram, right ureteral stent placement, possible stone removable if amenable. Discussed that he may only get a stent and need a second procedure. Discussed that if I can remove his right distal stone I will do that. Discussed the nonobstructing stone it may be harder to reach. He would not like to come back for a second procedure for the smaller upper stone if possible so I will leave the stent on a string if I can remove his ureteral stone so he can get back to school as quickly as possible as he has finals next week Consent obtained. Patient marked. Patient previously received ceftriaxone History of Present Illness Attending Physician: Ky Dixon MD History of Present Illness 20 yo M with a distal right ureteral calculus who has presented to the ED 3 times recently due to pain. CT scan showed small distal stone and even smaller nonobstructing right stone. UA was negative. Afebrile with stable vitals. No concern for infection. White blood cell count 7.4, creatinine 0.91. Allergies Allergy/AdvReac Type Severity Reaction Status Date / Time No Known Allergies Allergy Verified 05/15/25 15:08 Home Medications Medication Instructions Recorded Confirmed Type adalimumab-atto 40 mg/0.4 mL 40 mg subcut UD 02/17/25 05/14/25 History subcutaneous auto-injector (Amjevita(CF) Autoinjector) ondansetron 4 mg disintegrating 4 mg PO Q8H PRN nausea and 05/10/25 05/14/25 Rx tablet vomiting 5 days #15 tabs acetaminophen 500 mg tablet 500 mg PO Q6 PRN Pain 05/13/25 05/14/25 History ibuprofen 200 mg tablet (Advil) 200 mg PO Q6 PRN Pain 05/14/25 05/14/25 History oxycodone 5 mg tablet 5 mg PO Q6H PRN Pain 05/14/25 05/14/25 History tamsulosin 0.4 mg capsule 0.4 mg PO QAM 05/14/25 05/14/25 History Patient History Social History Smoking Status: Never smoker Hx Alcohol Use: Yes Hx Substance Use: No Preferred Language: Spanish Communication Ability: Effective 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 Beliefs That Will Affect Care: None Current Living Situation: Family Current Living Situation Comment: stays with uncle in [place] during school semesters Feels Safe at Home: Yes Safety Concerns: Feels Safe At This Time Assistive Devices: None Physical Exam Physical Exam: General: Alert and oriented, no acute distress HEENT: Normocephalic, mucous membranes moist Pulmonary: Nonlabored respirations Abdomen: Nondistended Extremities: Moves all 4 spontaneously Neuro: No gross deficits Skin: Warm, dry, no rashes noted Results & Data Vital Signs (Past 12 Hours) Vital Signs Temp Pulse Resp BP Pulse Ox O2 Del Method 05/15/25 08:07 36.6 C 76 20 120/73 98 Room Air PG Care Time/CCT Total # of Minutes Spent Total Time Spent with Patient: Total time spent is greater than 50% in coordination of care (as documented) at patient's floor/unit and/or counseling patient: Coding Level of Care Code 89061 IN/OBS CONSULT LVL 3,45M Diagnoses Right kidney stone N20.0
[2025-05-15] MEDS: LACTATED RINGER'S 1,000 ML IV SCH (15:06)
--- NOTE | 2025-05-15 15:31 | Anesthesiology Consultation ---
Date of Service May 15, 2025 Assessment & Plan Chart Review Chart Review: Acceptable Risk for Surgery Consults Requested none History Surgery Operation Date: 05/15/25 11:25 Proposed Procedures p Cystoscopy Right Retrograde Pyelogram Stent, Poss Laser with Treatment - Antonio Garcia MD Height/Weight Height: 6 ft Weight: 66.3 kg Allergies Allergy/AdvReac Type Severity Reaction Status Date / Time No Known Allergies Allergy Verified 05/15/25 15:08 Medications Home Medications Medication Instructions Recorded Confirmed Last Taken adalimumab-atto 40 mg/0.4 mL 40 mg subcut UD 02/17/25 05/14/25 04/30/25 subcutaneous auto-injector (Amjevita(CF) Autoinjector) ondansetron 4 mg disintegrating 4 mg PO Q8H PRN nausea and 05/10/25 05/14/25 05/14/25 tablet vomiting 5 days #15 tabs acetaminophen 500 mg tablet 500 mg PO Q6 PRN Pain 05/13/25 05/14/25 05/14/25 17:00 ibuprofen 200 mg tablet (Advil) 200 mg PO Q6 PRN Pain 05/14/25 05/14/25 05/14/25 13:00 oxycodone 5 mg tablet 5 mg PO Q6H PRN Pain 05/14/25 05/14/25 Unknown tamsulosin 0.4 mg capsule 0.4 mg PO QAM 05/14/25 05/14/25 05/14/25 Active Medications Generic Name Dose Route Start Last Admin Trade Name Freq PRN Reason Stop Dose Admin Lactated Ringer's 1,000 mls @ 15 mls/hr 05/15/25 14:45 05/15/25 15:06 Lr IV 05/18/25 14:44 15 mls/hr .Q24H LAURA Administration Tamsulosin HCl 0.4 mg 05/15/25 09:00 05/15/25 09:00 Tamsulosin Hcl 0.4 Mg Cap PO 06/14/25 08:59 0.4 mg QAM LAURA Administration NPO Date Last Intake of Fluids: 05/14/25 Time Last Intake of Fluids: 19:00 Date Last Intake of Solids: 05/14/25 Time Last Intake of Solids: 11:00 Social History Smoking Status: Never smoker Hx Alcohol Use: Yes alcohol intake frequency: holidays/special occasions only Hx Substance Use: No Physical Exam Vital Signs Last Vital Signs Temp 36.8 C 05/15/25 15:09 Pulse 93 H 05/15/25 15:09 Resp 20 05/15/25 15:09 BP 140/79 05/15/25 15:09 Pulse Ox 99 05/15/25 15:09 O2 Del Method Room Air 05/15/25 15:09 Testing Laboratory Results 05/15/25 06:56 05/15/25 06:56 Urine Color Yellow 05/14/25 20:30 Urine Appearance Clear (Clear) 05/14/25 20:30 Urine pH 7.5 (4.5-7.5) 05/14/25 20:30 Ur Specific [place] 1.003 (1.000-1.030) 05/14/25 20:30 Urine Protein Negative (Negative) 05/14/25 20:30 Urine Glucose (UA) Negative (Negative) 05/14/25 20:30 Urine Ketones Trace (Negative) H 05/14/25 20:30 Urine Nitrite Negative (Negative) 05/14/25 20:30 Ur Leukocyte Esterase Negative (Negative) 05/14/25 20:30 Urine WBC (Auto) 0-5 /hpf (0-5) 05/14/25 20:30 Urine RBC (Auto) 0-2 /hpf (0-2) 05/14/25 20:30 U Hyaline Cast (Auto) 0-2 /lpf (0-2) 05/14/25 20:30 U Epithel Cells (Auto) 0-2 /hpf (0-2) 05/14/25 20:30 Urine Bacteria (Auto) None Seen (None Seen) 05/14/25 20:30
[2025-05-15] MEDS ORDERED: ATROPINE SULFATE 0.1 MG/ML 10ML SYR IV PRN (15:40)
[2025-05-15] MEDS ORDERED: HYDROmorphone INJ 2 MG/ML SYR/VIAL IV PRN (15:40)
[2025-05-15] MEDS ORDERED: PROMETHAZINE HCL 6.25 MG in SODIUM CHLORIDE 0.9% 50 ML IV PRN (15:40)
[2025-05-15] MEDS ORDERED: PROPOFOL IV EMULSION 10 MG/ML 20 ML VIAL IV ONE ×2 (15:54→16:19)
[2025-05-15] MEDS ORDERED: DEXAMETHASONE SOD INJ 4 MG/ML VIAL ONE (15:54)
[2025-05-15] MEDS ORDERED: LIDOCAINE 2% 2 ML VIAL/AMP(20MG/ML) INFIL ONE (15:54)
[2025-05-15] MEDS ORDERED: ONDANSETRON INJ 2 MG/ML 2 ML VIAL ONE (15:54)
[2025-05-15] MEDS ORDERED: MIDAZOLAM HCL 1 MG/ML 2ML VIAL ONE (15:55)
--- NOTE | 2025-05-15 16:36 | Operative Report ---
PG Post Operative Report Pre & Post Diagnosis Right ureteral calculus Operation Date: 05/15/25 11:25 <No data on this case meets the specified criteria> Right ureteral calculus I identified the patient and participated in the time-out.: Yes Procedure Cystoscopy, right retrograde pyelogram with radiograph interpretation, ureteroscopy, basket extraction, right ureteral stent placement Operation Date: 05/15/25 11:25 <No data on this case meets the specified criteria> Surgeon Antonio Garcia MD Sports Agent None Estimated Blood Loss 0 Findings See Below Stone in distal ureter basketed out. Retrograde showed no extravasation. Stent in appropriate position on a string Specimens Right ureteral calculus Drains 6 Mauritanian by 28 cm right ureteral stent with extraction string taped to penis Anesthesia Type General Indications 20-year-old male with a distal right obstructing ureteral calculus and a small nonobstructing stone. Patient requested that if I can remove the distal stone but not get the stone in the kidney, that he would still want the stent left on a string so it can be removed so he can be pain-free for finals at school next week. Description of Procedure After informed consent was obtained, the patient was transported to the operative suite. General anesthesia was induced. They were placed in dorsal lithotomy position and prepped and draped in sterile fashion. They received preoperative ceftriaxone. An appropriate surgical timeout was performed. Rigid cystoscope was inserted per urethra into the bladder. I turned my attention to the right ureteral orifice and advanced a sensor wire into the kidney. Cystoscope was removed. Advanced a semirigid ureteroscope but this was too big for the distal ureter. I swapped this out for a needle tip semirigid and encountered the stone in the distal ureter. Using a 0 tip Nitinol basket, this was basketed out. Semirigid scope was removed. 5 Mauritanian was advanced over the wire and wire was removed. Retrograde pyelogram was shot which showed no extravasation. Wire was replaced. 6 Mauritanian by 28 cm right ureteral stent was deployed with a good proximal coil in the kidney and a good distal coil in the bladder, both confirmed fluoroscopically. String was taped to the penis using benzoin and Tegaderm. This concluded the end of the case. All counts correct at the end of the case. I was present scrubbed and actively participated for the entirety of the p rocedure. I attest to the content of the Intraoperative Record and any orders documented therein. Any exceptions are noted below.
[2025-05-15] MEDS: DIATRIZOATE MEGLUMINE 30% 100ML VIAL INSTIL PRN (16:39)
--- NOTE | 2025-05-15 17:15 | Anesthesiology Progress Note ---
Date of Service May 15, 2025 Anesthesia Post Procedure Vital Signs Vital Signs: Temp Pulse Pulse Pulse Resp BP BP 05/15/25 16:55 63 14 99/49 L 05/15/25 16:47 36.4 C L 56 L 16 97/49 L 05/15/25 15:09 36.8 C 93 H 20 140/79 05/15/25 08:07 36.6 C 76 20 120/73 05/15/25 02:04 37.0 C 76 16 141/56 H 05/15/25 01:34 61 05/14/25 23:19 61 05/14/25 21:00 73 18 132/86 05/14/25 20:00 69 20 125/85 05/14/25 19:19 78 05/14/25 19:16 74 22 147/88 H 05/14/25 19:02 36.7 C 95 H 20 131/92 Pulse Ox O2 Del Method O2 Flow Rate 05/15/25 16:55 98 Oxymask 8 05/15/25 16:47 98 Oxymask 8 05/15/25 15:09 99 Room Air 05/15/25 08:07 98 Room Air 05/15/25 02:04 98 Room Air 05/15/25 01:34 Room Air 05/14/25 23:19 05/14/25 21:00 98 Room Air 05/14/25 20:00 98 Room Air 05/14/25 19:19 05/14/25 19:16 100 Room Air 05/14/25 19:02 99 Room Air Pain Intensity Flank: Pain Intensity: 4 Transfer of Care Handoff Completed per policy Notes Mental Status: alert / awake / arousable and participated in evaluation Patient Amnestic to Procedure: Yes Nausea / Vomiting: adequately controlled Pain: adequately controlled Airway Patency, RR, SpO2: stable & adequate BP & HR: stable & adequate Hydration State: stable & adequate Anesthetic Complications: no major complications apparent
--- NOTE | 2025-05-15 18:50 | Discharge Summary ---
Discharge Summary Date of Service May 15, 2025 Principal Dx & Hospital Course #1 = Principal Diagnosis (1) Hydroureteronephrosis: (2) Right kidney stone: (3) Elevated bilirubin: (4) Hyponatremia: (5) Hypokalemia: Plan #Hydroureteronephrosis/R renal calculi - 20-year-old male with PMHx RA and known kidney stone presenting for worsening right sided flank pain and right lower quadrant pain, after failing outpatient management. CTAP 05/10 revealed a 4mm stone at distal R ureter w/ out significant obstruction. He was then d/c home w/ tamsulosin, zofran, and oxycodone. Pt returned to ED 05/13 for reoccurrence of pain where a Renal US revealed WNL kidney size and a non-obstructing Rt renal calculus. Pt represented on 05/14 w/ reoccurrence of severe pain. CTAP on 05/14 w/ 4mm stone in R UVJ w/ mild hydroureteronephrosis w/ perinephric fluid and Sm L non-obstructing stones. UA done on 05/14 was noninfectious. Urology was consulted and Pt was taken to the OR for a cystoscopy, right retrograde pyelogram, ureteroscopy, basket stone extraction, and right stent placement. Dr Garcia was able to successfully remove the kidney stone and place R stent w/ attached string so that it may be removed Monday. Dr Garcia sent oxybutynin to pharmacy to help with bladder spasms. Pt should follow up with Urology as scheduled. #Elevated bilirubin - New Onset; While in the hospital, Biliwas elevated up to 1.7 on 05/14, LFTs were otherwise WNL at that time and CTAP in ED demonstrated no abnormalities of the GB, Liver, or Pancrease. It is possible that this elevation is due to Pt's Amjevita. Pt should follow-up with [facility] as scheduled 05/22 to discuss this. #Rheumatoid Arthitis - As Above, PT should follow up with Rheumatology as scheduled 05/22/25. Continue Amjevita. #Hyponatremia/Hypokalemia - RESOLVED; Likely secondary to decreased intake secondary to pain. Dispo: Home, Self-care Admission HPI Per Admitting Provider 20-year-old male with known kidney stone presenting for worsening right sided flank pain and right lower quadrant pain not alleviated with home medications. Patient was diagnosed with renal stone on 05/10 at [facility]. 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 It had been bearable up until that point, with occasional episodes of pain that lasted no more than an hour and then dissipated. However the day of arrival, he had a constant 6 hours of pain that was stabbing and pulsating in nature. He states he took his pain medications that he was prescribed (oxycodone) and this did not help alleviate the pain. He was nauseous, without vomiting. States that the pain is located at his RLQ and right flank, little radiation into the groin. 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 He did have 1 episode of (urethral stinging) with urination when in the ED. Denies fevers, did have some chills with most severe episodes of pain. Denies chest pain, SOB, palpitations, numbness/tingling, fever, weakness, syncope, or falls. His most recent injection for RA was stable for . ED evaluation reveals CBC with leukocytosis 14.42, stable H&H and platelets; CMP sodium 134, potassium 3.4, AG 12, glucose 110, bilirubin 1.7; UA negative for infection; CTAP 4 mm stone distal R ureter near right UVJ, mild R hydroureteronephrosis, hypoenhancement R kidney and right perinephric fluid, inferior R renal stone, small nonobstructing L renal stones without hydronephrosis, mild prominence bladder wall likely secondary to underdistention.; Provided with tamsulosin 0.4 mg po, 1L NSS, Zofran 4 mg IV, morphine 4 mg IV, ketorolac 10 mg IV, and acetaminophen 1 g IV in ED. Please see Dr. Quintana attestation for adjustments/additions to treatment plan. Discharge Exam General: Pt is a 20 y/o WD/WN M in NAD in bed. VS: reviewed, unremarkable Skin: Warm and dry; no lesions or ulcerations Respiratory: CTA bilat, no adventitious sounds noted. Chest expansion is full and symmetrical Cardio: RRR no murmurs Abdomen: Round, normoactive BS x4, nontender to palpation MSK: FROM of extremities, no deformities Extremities: no edema Neuro: A&Ox4, cooperative Discharge Plan Discharge Items Patient Disposition: Home - Self-Care Reason For Visit: R kidney stone, hydroureteronephrosis Discharge Diagnosis: Right urolithiasis Condition on Discharge: Fair Activity: Resume your previous activity Non-emergency contact: Urologist Call non-emergency contact if: you have any medication questions Follow-up/Referrals: [place] [Primary Care Provider] - Diet: Regular Addtl Attending Provider Instructions: Hospital Course: You were admitted to the hospital on 05/14 after failing outpatient Kidney Stone management. While you were in the hospital, a CT revealed that your Kidney stone became obstructive, resulting in fluid retention within your kidney. You were admitted to the hospital for continued pain management and further evaluation. Urology was consulted and was able to take you to the OR for Stone removal and Stent placement. A string was left attached to your stent so that you may pull and remove it on Monday, please do this according to the instructions provided to you by Dr Garcia. Oxybutynin was sent to your pharmacy to help with bladder spasms, please take this as prescribed and follow up with Urology as scheduled. Further instructions provided by Urology can be found below, please read them throughouly. Medications: Your medication list has been reviewed and reconciled upon discharge to ensure accuracy and continuity of care. An updated list of all your medications is included with your hospital discharge paperwork. Please review this list closely, and make note of any changes. We sent a new medication called Oxybutynin to your pharmacy. Take this as directed by your Urologist, this medication is to help with spasms often associated with ureteral stent placement. Take your medications as instructed; do not skip a dose of your medicines. Make sure all of your doctors know every medicine you are taking (including [id number]-lrq-hmhzyfq medicines, vitamins, and supplements). Call your primary care provider before taking any new medicines (including over- the-counter medicines, vitamins, and supplements), because some of these may interact with your current medications, or may make your symptoms worse. Tell your primary care provider if you cannot afford your medications. Activity: You can do normal everyday activities as your body allows. Take rest breaks if you feel tired. Do not overexert. Stop activity if you have pain, shortness of breath or feel dizzy. Follow-up appointments: Make an appointment with your primary care physician within one week of discharge. A copy of this summary will be sent to them. Every time you see your primary care physician, or any other doctor, bring your medication list, and a list of questions. CONTACT YOUR PRIMARY CARE PROVIDER if you experience any of the following: Shortness of breath or difficulty breathing Fevers or chills Feeling tired with normal activity or experiencing dizziness or fainting Difficulty following your treatment plan, or difficulty taking medications CALL 911 OR GO TO THE EMERGENCY DEPARTMENT if you experience any of the following: Severe abdominal pain or nausea/vomiting Severe chest pain, or chest pain that radiates (moves) to your jaw or arm Sudden, severe shortness of breath or difficulty breathing Thank you for allowing us to participate in your care. 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 Continue Flomax. Oxycodone for breakthrough pain. -Oxybutynin as needed for bladder spasms. This can cause dry mouth, dry eyes and constipation -Remove your ureteral stent on 05/17/25 in the morning by pulling on the string. If you not feel comfortable doing this, our nursing staff can remove it for you the following day. If your stent becomes dislodged prior to scheduled removal, this is okay and just remove the stent. -Normal to see blood in your urine while stent in place. As long as you are able to urinate, this is okay. - Resume your previous diet. -You will get a call for a follow-up appointment in 2 months with a renal u ltrasound prior. Pending Studies at Discharge: No Stand-Alone Forms: [employer], Smoking Cessation Medications and DC Order Prescriptions: New oxybutynin chloride 5 mg tablet extended release 24hr 5 mg PO DAILY Qty: 5 0RF Continued acetaminophen [Tylenol Ex Str Rapid Release] 500 mg Tablet 500 mg PO Q6 PRN (Reason: Pain) Patient Comments: ibuprofen [Advil] 200 mg Tablet 200 mg PO Q6 PRN (Reason: Pain) oxycodone 5 mg Tablet 5 mg PO Q6H PRN (Reason: Pain) tamsulosin 0.4 mg capsule 0.4 mg PO QAM Amjevita(CF) Autoinjector 40 mg/0.4 mL auto-injector 40 mg SUBCUT UD Patient Comments: 1 inj every 3 weeks Rx Instructions: every 3 weeks on wednesdays ondansetron 4 mg tablet,disintegrating 4 mg PO Q8H PRN (Reason: nausea and vomiting) 5 Days Qty: 15 0RF Discharge Orders: Discharge Order (Routine); Ordered 05/15/25 Ordered By: Nan Garza Admission Data Admit Date/Time: 05/14/25 22:48 Attending Provider: Ky Dixon Admit Provider: Earl Quintana Primary Care Provider: [facility] Other Providers: Earl Quintana; Antonio Garcia Hospital Stay Data Consultations 05/14/25 22:09 ED Decision to Admit Stat 05/15/25 01:34 Consult Urology Routine Procedures Performed Operation Date: 05/15/25 11:25 Actual Procedures p Cystoscopy, right retrograde pyelogram, ureteroscopy, basket stone extraction, right stent placement(Right) - Antonio Garcia MD Diagnostic Imagining Performed 05/14/25 19:16 CT abd pelvis IV con only Stat 05/15/25 FL retrograde includes kub Routine Discharge Instructions Given to Patient (Per Discharging Provider) Hospital Course: You were admitted to the hospital on 05/14 after failing outpatient Kidney Stone management. While you were in the hospital, a CT revealed that your Kidney stone became obstructive, resulting in fluid retention within your kidney. You were admitted to the hospital for continued pain management and further evaluation. Urology was consulted and was able to take you to the OR for Stone removal and Stent placement. A string was left attached to your stent so that you may pull and remove it on Monday, please do this according to the instructions provided to you by Dr Garcia. Oxybutynin was sent to your pharmacy to help with bladder spasms, please take this as prescribed and follow up with Urology as scheduled. Further instructions provided by Urology can be found below, please read them throughouly. Medications: Your medication list has been reviewed and reconciled upon discharge to ensure accuracy and continuity of care. An updated list of all your medications is included with your hospital discharge paperwork. Please review this list closely, and make note of any changes. We sent a new medication called Oxybutynin to your pharmacy. Take this as directed by your Urologist, this medication is to help with spasms often associated with ureteral stent placement. Take your medications as instructed; do not skip a dose of your medicines. Make sure all of your doctors know every medicine you are taking (including hpbx-xlp-mtwuvyr medicines, vitamins, and supplements). Call your primary care provider before taking any new medicines (including over- the-counter medicines, vitamins, and supplements), because some of these may interact with your current medications, or may make your symptoms worse. Tell your primary care provider if you cannot afford your medications. Activity: You can do normal everyday activities as your body allows. Take rest breaks if you feel tired. Do not overexert. Stop activity if you have pain, shortness of breath or feel dizzy. Follow-up appointments: Make an appointment with your primary care physician within one week of discharge. A copy of this summary will be sent to them. Every time you see your primary care physician, or any other doctor, bring your medication list, and a list of questions. CONTACT YOUR PRIMARY CARE PROVIDER if you experience any of the following: Shortness of breath or difficulty breathing Fevers or chills Feeling tired with normal activity or experiencing dizziness or fainting Difficulty following your treatment plan, or difficulty taking medications CALL 911 OR GO TO THE EMERGENCY DEPARTMENT if you experience any of the following: Severe abdominal pain or nausea/vomiting Severe chest pain, or chest pain that radiates (moves) to your jaw or arm Sudden, severe shortness of breath or difficulty breathing Thank you for allowing us to participate in your care. Total Time Total Time Spent Total Time Spent (In Minutes): Time spent day of discharge 50 minutes including direct patient care, medication reconciliation, documentation, review of labs and images, and coordination of care. Coding Level of Care Code 65278 INP/OBS DISCH >30 MIN Diagnoses Hydroureteronephrosis N13.30 Right kidney stone N20.0 Elevated bilirubin R17 Hyponatremia E87.1 Hypokalemia E87.6
[2025-05-15] MEDS ORDERED: cefTRIAXone SODIUM 2,000 MG/50 ML BAG IV SCH (23:00)
--- NOTE | 2025-05-16 07:24 | Fluoroscopy Report ---
INTRAOPERATIVE FLUOROSCOPIC IMAGES: CLINICAL HISTORY: Right retrograde pyelogram and stent placement. COMPARISON: CT of the abdomen and pelvis May 14, 2025. Fluoroscopy time: 11.2 seconds. Number of fluoroscopic images: 4. Ka,r: 1.21 mGy. FINDINGS: Fluoroscopy was provided during right retrograde pyelogram with right stent placement. The stent is well-positioned. IMPRESSION: Fluoroscopy provided during right retrograde pyelogram with right ureteral stent placemen tThomas Electronically signed by: Burak Nicholson M.D. 05/16/2025 7:22 AM
== END 2025-05-15 19:36 | disposition home or self-care (01) ==
LOC: ED 18:59 → 3N 18:59 → SUATTDRO 22:48 → 3N 05-15 01:34